=== PATIENT | female | born 1995 | race Caucasian/White ===

== ENCOUNTER 2022-09-04 17:38 | Emergency (ER) | payer BC, SELFPAY ==
[2022-09-04 17:52] VITALS: BP 126/80; PULSE 93; RESP 20; TEMP 37.3; O2SAT 93
[2022-09-04 17:59] VITALS: BP 126/80; PULSE 93; RESP 20; TEMP 37.3; O2SAT 93
--- NOTE | 2022-09-04 18:15 | ED.EAR ---
HPI - Ear Problem General Chief complaint: Ear Stated complaint: painful ears, throat irritation Source: patient and RN notes reviewed Mode of arrival: ambulatory Limitations: no limitations History of Present Illness HPI Narrative: 26-year-old female presents to [facility] complaining of bilateral ear pain and sore throat. Pain patient stated that her ear pain started about 5 days ago, stating on her right ear is worse than her left. Patient states that she was recently swimming about 7 days ago and concerned that she might have gotten swimmer's ear. Patient also notices sore throat as well. Patient denies any cough, congestion, fever, body aches, chills, nausea, vomiting or diarrhea. Patient side common [facility] today because she developed discharge coming out of her right ear that was bloody in nature. Patient denies any hearing loss. Related Data Home Medications Medication Instructions Recorded Confirmed bicalutamide 50 mg tablet 50 mg PO DIRECTED 09/04/22 09/04/22 estradiol 2 mg tablet 2 mg PO DIRECTED 09/04/22 09/04/22 progesterone micronized 100 mg 100 mg PO DIRECTED 09/04/22 09/04/22 capsule Review of Systems Review of Systems: CONSTITUTIONAL: Denies fever, chills, or sweats. EYES: Denies visual changes, redness, or discharge. ENT: Positive for bilateral ear pain and sore throat. CARDIOVASCULAR: Denies chest pain, palpitations, or edema. RESPIRATORY: Denies cough or dyspnea. GASTROINTESTINAL: Denies abdominal pain, nausea, vomiting, or diarrhea. GENITOURINARY: Denies dysuria or hematuria. SKIN: Denies rash or itching. MUSCULOSKELETAL: Denies back pain, joint pain, or myalgia. NEUROLOGIC: Denies headache, numbness, or weakness. Pertinent positives per HPI. PMFSH Comments At the time of my signature, I reviewed and agree with the nursing past medical, surgical, social, and family history. There is no relevant family history pertinent to the patient complaint. Exam Narrative: GENERAL: This is a well-nourished, well-developed patient, in no apparent distress. HEAD: normocephalic, atraumatic. EYES: Sclera clear/white. Vision is grossly intact. EARS: External ears normal. Right auditory canal is edematous and erythemic with bloody discharge. Tympanic membrane is poorly visualized. Left auditory canal home is erythemic and edematous but patent without discharge. Tympanic membrane with mild erythema without perforation. Hearing grossly intact. NOSE: External nose normal with no obvious nasal discharge, nares without redness, no rhinorrhea. THROAT: Mucous membranes moist, posterior pharynx with mild erythema without exudate. NECK: Neck supple, non-tender without lymphadenopathy, masses or thyromegaly. CARDIOVASCULAR: Regular rate and rhythm without murmurs, gallops, or rubs. RESPIRATORY: Clear to auscultation. Breath sounds equal bilaterally. No wheezes, rales, or rhonchi. GASTROINTESTINAL: Abdomen soft, non-tender, nondistended. Bowel sounds are active. No hepato-splenomegaly, or palpable masses. No guarding. SKIN: warm, intact with no suspicious lesions or rash, good texture and turgor. NEURO: awake, alert, and oriented to person, place and time. There were no obvious focal neurologic abnormalities. EXTREMITIES: No clubbing, cyanosis, or edema. No joint tenderness, effusion, or edema noted. BACK: Nontender without deformity or crepitus. No flank tenderness. Course Course Level of Care: [facility] Visit Vital Signs Vital signs: Vital Signs Temperature 99.2 F 09/04/22 17:52 Pulse Rate 93 09/04/22 17:52 Respiratory Rate 09/04/22 17:52 Blood Pressure 126/80 09/04/22 17:52 Pulse Oximetry 93 09/04/22 17:52 Oxygen Delivery Room Air 09/04/22 17:52 Temperature 99.2 F 09/04/22 17:59 Pulse Rate 93 09/04/22 17:59 Respiratory Rate 09/04/22 17:59 Blood Pressure 126/80 09/04/22 17:59 Pulse Oximetry 93 09/04/22 17:59 Oxygen Delivery Ro
== END 2022-09-04 18:38 | disposition home or self-care (01) ==
PROVIDERS: Emergency Provider Nurse Practitioner Family; PCP Internal Medicine
DX: H60.503 Unspecified acute noninfective otitis externa, bilateral (principal)
CPT/HCPCS: 87081; 87880; 99213; G0463